=== PATIENT | male | born 1995 | race Caucasian/White ===

== ENCOUNTER 2018-02-17 02:39 | Emergency (ER) | payer MEDICAID ==
[2018-02-17] MEDS ORDERED: Lidocaine 2% Gel 5 mL TP ONE (03:07)
--- NOTE | 2018-02-17 04:30 | ED Physician Chart ---
ED Chief Complaint/HPI - Patient Information Date Seen:: 02/17/18 Time Seen:: 02:55 Chief Complaint:: right brow laceration History of Present Illness:: right brow laceration without LOC. No N or V. Patient is intoxicated. Allergies:: Allergies Allergy/AdvReac Type Severity Reaction Status Date / Time No Known Allergies Allergy Verified 02/17/18 02:55 Vitals:: Vital Signs - 8 hr 02/17/18 02:55 Temp 99.1 F HR 116 RR 16 BP 113/69 O2 Sat % 98 Historian:: Patient Review:: Nurse's Note Reviewed ED Review of Systems - Review of Systems General/Constitutional: No fever, No chills, No weight loss, No weakness, No diaphoresis, No edema, No loss of appetite Skin: Bruising, Other (right brow laceration) Head: No headache, No light-headedness Eyes: No loss of vision, No pain, No diplopia ENT: No earache, No nasal drainage, No sore throat, No tinnitus, Other (right brow laceration 3.5 cm in length) Neck: No neck pain, No swelling, No thyromegaly, No stiffness, No mass noted Cardio Vascular: No chest pain, No palpitations, No PND, No orthopnea, No edema Pulmonary: No SOB, No cough, No sputum, No wheezing GI: No nausea, No vomiting, No diarrhea, No pain, No melena, No hematochezia, No constipation, No hematemesis G/U: No dysuria, No frequency, No hematuria Musculoskeletal: No bone or joint pain, No back pain, No muscle pain Endocrine: No polyuria, No polydipsia Psychiatric: No prior psych history, No depression, No anxiety, No suicidal ideation Hematopoietic: Bruising, No lymphadenopathy Allergic/Immuno: No urticaria, No angioedema Neurological: No syncope, No focal symptoms, No weakness, No paresthesia, No headache, No seizure, No dizziness, No confusion, No vertigo ED Past Medical History - Past Medical History Obtainable: Yes Past Medical History: No significant medical hx Family Medical History - Family Member Mother History Unknown: Yes ED Physical Exam - Physical Examination General/Constitutional: Awake, Well-developed, well-nourished, Alert, No distress, GCS 15, Non-toxic appearing, Ambulatory Other Gen/Cons comments:: smell of alcohol. Eyes: PERRL, EOMI Other Eyes comments:: RIGHT BROW LACERATION WHICH MEASURES 3.5 CM. bruising on R brow and right upper lid. no step offs. Skin: Well hydrated Other Skin comments:: RIGHT BROW LACERATION WHICH MEASURES 3.5 CM. abrasion at hairline and above eyebrow. ENMT: External ears, nose nl Neck: Nontender, Full ROM w/o pain, No JVD, No nuchal rigidity, No bruit, No mass, No stridor Neuro/Psych: Alert/oriented, Normal sensory exam, Normal motor strength, Judgement/insight normal, Mood normal, Normal gait, No focal deficits ED Assessment - Assessment General Assessment: CT scan: no acute intracranial hemorrhage or skull fracture; right anterior inferior frontal scalp/preseptal periorbital superficial subcutaneous thickening /hematoma noted. 3 mm slices: no supraorbital roof fracture. - Procedures Informed Consent: Procedure/risk/benefits explained by MD: Yes Location:: 3.5 CM RIGHT BROW LACERATION Laceration Type:: Intermediate, Other (CONTAMINATED) Wound Length: 3.5 cm Prep/Irrigation:: betadine sterile prep irrigation with sterile water Comments: debridement with # 10 blade to remove dirt. Inspection: FB removed (DIRT REMOVED WITH # 10 BLADE) Local Anesthetic:: 1% LIDOCAINE WITH EPINEPHRINE WITH INJECTION, 4 CC. TOPICAL 2% LIDOCAINE JELLY WITH OP SITE COVERAGE PRIOR TO INJECTION. Suture Type and #: 4-0 VICRYL SUTURES, INTERRUPTED AND BURIED PLACED IN DERMIS. FIVE 4-0 PROLENE SUTURES PLACED IN SKIN. ED Septic Shock - . Is Septic Shock (SBP<90, OR Lactate>4 mmol\L) present?: No - <6hrs of presentation: Vital Signs: Vital Signs - 8 hr 02/17/18 02:55 Temp 99.1 F HR 116 RR 16 BP 113/69 O2 Sat % 98 ED Reassessment (Disposition) - Reassessment Reassessment Condition:: Improved - Diagnosis Diagnosis:: RIGHT BROW LACERATION - Aftercare/Follow up Instructions Aftercare/Follow-Up Instructions:: Refer to Discharge Instructions Notes:: suture removal in 5 days. Clean with sterile water and apply non-sporin antibiotic ointment 2 times a day. Tylenol or motrin for pain. Medication Prescribed:: Keflex 500 mg po qid # 12. - Patient Disposition Discharge/Transfer:: Home Condition at Disposition:: Stable, Improved
[2018-02-17] MEDS ORDERED: Tetracaine 0.5% Ophth Soln 15 mL Soln RIGHT EYE ONE (05:09)
[2018-02-17] MEDS ORDERED: Fluorescein Sodium 1 mg Ophth Strip RIGHT EYE ONE (05:09)
[2018-02-17] MEDS ORDERED: Dacriose Ophth Soln 120 mL Bottle RIGHT EYE ONE (05:11)
--- NOTE | 2018-02-17 08:41 | Diagnostic Imaging Report ---
CT scan of the brain without contrast History: Headache, trauma Total DLP equals 626 CTDI equals 33.6 Axial sections were obtained from the base of the skull to the vertex. There is a normal ventricular system size. No focal parenchymal lesions are seen. No evidence of any mass effect or shift of midline structures. No extra-axial masses or abnormal fluid collections. Impression: Negative examination
== END 2018-02-17 05:25 | disposition home or self-care (01) ==
LOC: ER 02:39
DX: S01.121A Laceration with foreign body of right eyelid and periocular area, initial encounter (principal); F10.129 Alcohol abuse with intoxication, unspecified; X58.XXXA Exposure to other specified factors, initial encounter; Y93.89 Activity, other specified; Y92.89 Other specified places as the place of occurrence of the external cause; Y99.8 Other external cause status
CPT/HCPCS: 70450-TC; Z7502